=== PATIENT | female | born 1970 | race Caucasian/White ===

== ENCOUNTER 2022-06-05 09:26 | Outpatient (REF) | payer BC, SELFPAY ==
--- NOTE | 2022-06-05 09:30 | SKI_PTH ---
PATIENT: Caty Rg LOC: [facility] U#:[id number] AGE/SX: 51/F ROOM: RE06/05/[address]: Jorge Mary MD : 1970 BED: DIS: 06/05/2022 SPEC #: [id number] RECD: 06/06/22 12:19 STATUS: [facility] REPaulina #: [id number] JD: 06/05/22 09:[address]: Jorge Mary DEPT: Surgical Specimen RECD BY: Jenifer Ferreira ENTERED: 06/06/22 12:20 SP TYPE: OREL MC DR: Rita Russell Tissues: 1 - SKIN BIOPSY(SHAVE/PUNCH) Procedures: SKIN LEVEL 4 Comments: [id number]
== END 2022-06-05 09:27 | disposition home or self-care (01) ==
LOC: LBN 09:26
PROVIDERS: PCP Physician Assistant Medical; Visit Provider Otolaryngology
DX: L85.8 Other specified epidermal thickening (principal)
CPT/HCPCS: 88305

== ENCOUNTER 2022-06-14 15:22 | Outpatient (REF) | payer BC, SELFPAY ==
[2022-06-14 16:41] LABS: Abs Immature Grans 0.02 10^3/uL (0.0-0.06); Absolute Basophil Count 0.09 10^3/uL (0.0-0.2); Absolute Eosinophil Count 0.19 10^3/uL (0.0-0.7); Absolute Lymphocyte Count 2.56 10^3/uL (1.2-3.4); Absolute Monocyte Count 0.46 10^3/uL (0.1-0.8); Absolute Neutrophil Count 5.01 10^3/uL (1.2-6.7); Basophils % 1.1; Eosinophils % 2.3; HCT 42.2 % (36.0-46.0); HGB 14.1 g/dL (11.2-15.7); Immature Grans % 0.2; Lymphocytes % 30.7; MCH 30.6 pg (27.0-33.0); MCHC 33.4 % (32.0-36.0); MCV 92 fL (80-95); Monocytes % 5.5; Neutrophils % 60.2; Platelet Count 285 10^3/uL (130-400); RBC 4.61 10^6/uL (3.93-5.22); RDW 13.4 % (11.7-14.6); RDW-SD 45.1 fL; WBC 8.33 10^3/uL (4.4-10.8)
[2022-06-14 16:52] LABS: Hemoglobin A1C 5.3 % (<5.7)
[2022-06-14 17:04] LABS: ALT 41 U/L (14-59); AST 19 U/L (15-37); Albumin 3.7 g/dL (3.4-5.0); Alkaline Phosphatase 96 U/L (46-116); Anion Gap 9.9 mmol/L (3-11); BUN 11 mg/dL (7-18); Bilirubin, Total 0.6 mg/dL (0.2-1.0); CO2 26.1 mmol/L (21.0-32.0); CREATININE 0.7 mg/dL (0.55-1.02); Calcium 9.1 mg/dL (8.5-10.1); Calculated LDL 125 mg/dL (<100); Chloride 105 mmol/L (98-107); Cholesterol 193 mg/dL (<200); Glucose 80 mg/dL (74-106); HDL Cholesterol 59 mg/dL (40-60); Potassium 3.6 mmol/L (3.5-5.1); Sodium 141 mmol/L (136-145); Total Protein 7.5 g/dL (6.4-8.2); Triglyceride 49 mg/dL (<150)
== END 2022-06-14 15:23 | disposition home or self-care (01) ==
LOC: NCHCN 15:22
PROVIDERS: PCP Physician Assistant Medical; Visit Provider Physician Assistant Medical
DX: Z13.89 Encounter for screening for other disorder (principal)
CPT/HCPCS: 80053; 80061; 83036; 85025

== ENCOUNTER 2024-05-05 00:50 | Outpatient (CLI) | payer BC, SELFPAY ==
--- NOTE | 2024-05-05 07:30 | DI.RAD_ITS ---
Exam(s) XR FOOT LT COMPLETE EXAM: XR FOOT LT COMPLETE CLINICAL HISTORY: Left foot pain,M79.672. TECHNIQUE: 2D digital imaging was performed. COMPARISON: No exams were available for comparison FINDINGS: 3 views There is no evidence of fracture or diastasis of the Lisfranc joint. Great toe metatarsophalangeal j oint appears unremarkable. Bone density normal. No osseous lesions. No erosions. There is a large inferior calcaneal spur noted. There is also enthesophyte on the posterior calcaneus Achilles inser tion site. No pes planus. No erosions. IMPRESSION: Findings as above but no acute osseous findings in the left foot. DATA REPOSITORY: RADIATION DOSE DELIVERED:
== END 2024-05-05 01:10 ==
PROVIDERS: PCP Physician Assistant Medical; Visit Provider Podiatrist
DX: M79.672 Pain in left foot (principal)
CPT/HCPCS: 73630

== ENCOUNTER 2025-02-16 14:05 | Outpatient (REF) | payer BC, SELFPAY ==
[2025-02-16 16:19] LABS: Anion Gap 5.9 mmol/L (3-11); BUN 15 mg/dL (7-18); CO2 30.1 mmol/L (21.0-32.0); CREATININE 0.8 mg/dL (0.55-1.02); Calcium 8.8 mg/dL (8.5-10.1); Calculated LDL 146 mg/dL (<100); Chloride 105 mmol/L (98-107); Cholesterol 228 mg/dL (<200); Estimated GFR 88.05 (mL/min/1.73m2); Glucose 98 mg/dL (74-106); HDL Cholesterol 75 mg/dL (>or=50); Potassium 4.6 mmol/L (3.5-5.1); Sodium 141 mmol/L (136-145); Triglyceride 39 mg/dL (<150)
[2025-02-16 16:29] LABS: Hemoglobin A1C 5.3 % (<5.7)
== END 2025-02-16 14:06 | disposition home or self-care (01) ==
LOC: NCHCN 14:05
PROVIDERS: PCP Physician Assistant Medical; Visit Provider Physician Assistant Medical
DX: E78.5 Hyperlipidemia, unspecified (principal); Z13.1 Encounter for screening for diabetes mellitus
CPT/HCPCS: 80048; 80061; 83036

== ENCOUNTER 2025-03-07 18:57 | Outpatient (REF) | payer BC, SELFPAY ==
[2025-03-07 16:49] LABS: TSH (W/Ref FT4) 2.08 uIU/mL (0.36-3.74)
== END 2025-03-07 18:58 | disposition home or self-care (01) ==
LOC: NCHCN 18:57
PROVIDERS: PCP Physician Assistant Medical; Visit Provider Physician Assistant Medical
DX: E04.1 Nontoxic single thyroid nodule (principal)
CPT/HCPCS: 84443